=== PATIENT | male | born 1970 | race African-American/Black ===

== ENCOUNTER 2020-05-30 18:17 | Emergency (ER) | payer OTHER ==
[2020-05-30 18:31] VITALS: BP 140/72; PULSE 79; TEMP 97.9; BMI 38.6
[2020-05-30] MEDS ORDERED: KETOROLAC TROMETHAMINE 30 MG/1 ML VIAL IM ONE (18:52)
[2020-05-30] MEDS ORDERED: KETOROLAC TROMETHAMINE 30 MG/1 ML VIAL ONE (19:01)
== END 2020-05-30 19:00 | disposition home or self-care (01) ==
LOC: JERFT 18:17
PROC: 3E023GC Introduction of Other Therapeutic Substance into Muscle, Percutaneous Approach (ICD-10-PCS; principal; 2020-05-30)
DX: M54.41 Lumbago with sciatica, right side (principal)
CPT/HCPCS: 99284-25